=== PATIENT | female | born 1980 | race Caucasian/White ===

== ENCOUNTER → 2017-02-16 | Outpatient (CLI) | payer OTHER ==
[~2017-02-16] MED LIST: AMOXICILLIN500 M1 PO; ANTI-FUNGAL15 GM TP; BIRTH CONTROL PILL PO; CALCIUM500 MG PO; FERROUS SULFATE PO; FISH OIL 1,0001 CA2 PO; FLINTSTONES CO1 EACH PO; METFORMIN HCL500 M1 PO; PRENATAL VITAMI1 TA4 PO; ZANTAC PO; [UNRECOGNIZED DRUG - OTHER] PO
--- NOTE | ~2017-02-16 | CR50 ---
[facility] A Service of [facility] & [facility] RADIOLOGY TEXT RESULTS PATIENT: TOREY GARCIA LOCATION: [facility] : 84 UNIT #: [id number] AGE: [address]: Axel Nelson MD SEX: F ORDER DR: [id number] [facility]. [place], [place] [address] [id number] O MR#: [id number] Acc #: [id number] NAME: TOREY GARCIA. : 1980 SEX: F STUDY DATE/TIME: 02/16/2017 12:06 UNIT: [facility] ROOM: STUDY DESCRIPTION: CR Knee AP Standing Brendon Attending Physician: Axel Nelson M.D. Referring Physician: Axel Nelson M.D. Ordering Physician: Axel Nelson M.D. Primary Care Physician: Leandro Shen M.D. MEDICAL IMAGING REPORT This report is preliminary unless electronic signature is present EXAM AP standing knees. HISTORY Right-sided knee pain for 3 weeks. FINDINGS AP standing views of the knees demonstrates no fracture OR deformity on this single AP standing view. No significant joint space narrowing. Bone mineralization appears normal. Prominent soft tissues compatible with obesity. IMPRESSION Negative standing AP view of the knees. Dictated by... Lion Toribio M.D. THIS IS AN ELECTRONICALLY VERIFIED REPORT Lion Toribio M.D. at 02/19/2017 7:14 AM PHILLIP/beena TD: 02/18/2017 23:07 JOB #: [id number] MEDICAL IMAGING REPORT Page 1 of 1 COPY
== END | disposition home or self-care (01) ==
LOC: CRAD 11:39
DX: M17.11 Unilateral primary osteoarthritis, right knee (principal)
CPT/HCPCS: 73565